=== PATIENT | female | born 1995 | race African-American/Black ===

== ENCOUNTER 2021-12-19 15:13 | Outpatient (CLI) | payer OTHER ==
[~2021-12-19] VITALS: Ht 162.6 cm; Wt 112.9 kg
--- NOTE | 2021-12-19 15:30 | NUR ---
1515 - PATIENT AMBULATORY TO LDR3 FOR NST. PATIENT SENT FROM CLINIC FOR EXTENDED MONITORING AFTER LOW BPP IN OFFICE. PATIENT DENIES LEAKING OF FLUID, CONTRACTIONS OR BLOODY SHOW. PATIENT REPORTS FAIR MOVEMENT. PATIENT ORIETNED TO ROOM AND PLAN OF CARE DISCUSSED. QUESTIONS ANSWERED. 1530 - PATIENT ON MONITOR. 1600 - MONITORING CONTINUES. 1624 - MD MARA UPDATED ON PATIENT VIA PHONE. ORDERS FOR DISCHARGE RECEIVED FROM MD MARA. PATIENT TO FOLLOW UP IN CLINIC ON SATURDAY FOR BPP. 1628 - MONITORING DISCONTINUED. 1630 - DISCHARGE INSTRUCTIONS REVIEWED. QUESTIONS ANSWERED. PATIENT AMBULATORY OFF UNIT.
== END 2021-12-19 16:30 | disposition home or self-care (01) ==
LOC: LDRO 15:13
DX: Z34.93 Encounter for supervision of normal pregnancy, unspecified, third trimester (principal); Z3A.36 36 weeks gestation of pregnancy

== ENCOUNTER 2022-01-04 06:24 | Inpatient (IN) | payer OTHER ==
[~2022-01-04] VITALS: Ht 162.6 cm; Wt 114.2 kg
[2022-01-04] VITALS (43 sets, daily range): BP systolic 97–131; BP diastolic 51–90; PULSE 60–96; TEMP 97.7–98.4
--- NOTE | 2022-01-04 06:30 | NUR ---
Presents to labor and delivery for induction of labor. Admission done, questions offered and answered. heart tones held on because baby isnt cooperating. heart tones 130s with accelerations noted. 0715 Pitocin started at 2 mat units iv as ordered and per policy. Pen g 5 million units iv started as ordered and per protocol for group b strep positive.
--- NOTE | 2022-01-04 06:45 | NUR ---
Rests in bed, alert. Having trouble keeping baby on monitor. This nurse holding ultra sound on.
[2022-01-04 07:49] LABS: BASO % 0.5 % (0.0-2.0); EOS % 0.7 % (0.0-4.0); GRAN # 2.9 K/mm3 (1.4-6.5); HEMATOCRIT 39.5 % (37.0-47.0); HEMOGLOBIN 12.8 g/dl (12.5-16.0); LYMPH % 22.9 % (20.0-51.0); MEAN CELL VOLUME 82 fl (80.0-100.0); MEAN CORPUSCULAR HEMOGLOBIN 26 pg (27-31); MEAN CORPUSCULAR HGB CONC 32 g/dl (33.0-37.0); MONO # 0.3 K/mm3 (0.1-0.6); MONO % 7.4 % (1.7-9.3); PLATELET COUNT 200 K/mm3 (130-400); RED BLOOD COUNT 4.84 M/mm3 (4.10-5.30)
[2022-01-04] MEDS ORDERED: NATURAL IRON65 MG (08:06)
[2022-01-04] MEDS ORDERED: PRENATAL TABLET PO (08:06)
--- NOTE | 2022-01-04 08:45 | NUR ---
Repositioned in bed, alert. Pad changed, clear fluid noted.
--- NOTE | 2022-01-04 09:00 | NUR ---
Rests in bed, alert. Breathing through contractions. Contractions palpate mild.
--- NOTE | 2022-01-04 09:15 | NUR ---
Ambulates to the bathroom. States needing to have a bowel movement. This nurse keeps checking on patient.
--- NOTE | 2022-01-04 09:30 | NUR ---
Uses birthing ball, states not liking it. Stands at bedside, alert, breathes through contractions.
--- NOTE | 2022-01-04 09:45 | NUR ---
Rests in bed, alert. States needing something for pain. 0955 Stadol 1 mg iv given as ordered.
--- NOTE | 2022-01-04 09:45 | NUR ---
Continues to rest with eyes closed. Resperations even and unlabored.
--- NOTE | 2022-01-04 10:00 | NUR ---
Rests in bed with eyes closed, resperations even and unlabored.
--- NOTE | 2022-01-04 11:00 | NUR ---
Repositioned patient to the right side. Visited with her about the epidural. Let her know that anesthesia will be in the o.r. at noon until about 1:45. States not wanting one right now. Patient drowsy with the stadol.
--- NOTE | 2022-01-04 11:15 | NUR ---
Request epidural. Anesthesia notified of request. Anesthesia here, visits with patient. Zakia here with another student. See anesthesia notes please. Patient tolerates well.
--- NOTE | 2022-01-04 12:30 | NUR ---
1239 Ephedrine 10 mg iv given for blood pressure of 97/54. Dr. Johansen here, Iupc placed per sterile technique.
--- NOTE | 2022-01-04 13:00 | NUR ---
Rests in bed, alert. Dr. Johansen here, vag exam done. Reports still dilated to five. Assist in putting left leg in stirrup.
--- NOTE | 2022-01-04 14:45 | NUR ---
Dr. Johansen called and let her know that patient having late decels, and heart tones down in the 90s-100s then back up to 120s. States turn pitocin off. 1450 Pitocin off as ordered.
--- NOTE | 2022-01-04 15:10 | NUR ---
Dr. Johansen called about heart tones down in the 80s-90s then back up to 120s. States to do knee chest position. Patient repositioned in knee chest.
--- NOTE | 2022-01-04 15:23 | NUR ---
Dr. Johansen called to inquire about patient. Let her know that heart tones are better in the 120s. Also let her know that she is still in knee chest position.
--- NOTE | 2022-01-04 15:30 | NUR ---
Continues to be knee chest positioned. Pen g 2.5 mat units iv given as ordred.
--- NOTE | 2022-01-04 16:19 | NUR ---
Dr. Johansen called and let known that patient complete. States not to push yet. Says Ill call you when I am ready.
--- NOTE | 2022-01-04 16:40 | NUR ---
scalp and iupc stopped working. Ultra sound toco on, heart rate 120s. Dr. Johansen called and start pushing. Pushes with contractions. Does well. 1654 Dr. Johansen here and pushes with patient. 170 Spontaneous delivery of baby boy boy by Dr. Johansen. 171 Spontaneous delivery of placenta by Dr. Johansen. Pitocin infusing at 333ccs an hour as ordered and per policy.
--- NOTE | 2022-01-04 17:15 | NUR ---
Rests in bed, alert. Dr. Johansen doing repair work.
--- NOTE | 2022-01-04 18:00 | NUR ---
Rests in bed, alert. Denies any pain at this time.
--- NOTE | 2022-01-04 18:40 | NUR ---
1839- REPORT RECEIVED, PT SLEEPING AT THIS TIME, CARE ASSUMED. 1914- PT HAVING SOME NAUSEA AND WOULD LIKE SOMETHING TO HELP WITH THAT. UNABLE TO LIFT LEGS FROM BED AT THIS TIME. 1999- PT LEGS STILL A LITTLE NUMB AND UNABLE TO DO STRAIGHT LEG LIFT. OFFERED TO GET PT UP WITH LIFT IF SHE WOULD LIKE. PT OPTS TO STAY IN LR4 BED UNTIL HER LEGS ARE LESS NUMB. 2099- EPIDURAL CATHETER REMOVED CHARTED. PT ASSISTED TO AMBULATE TO BATHROOM. ABLE TO VOID 400ML WITHOUT DIFFICULTY. PT INSTRUCTED ON AND PERFORMS PERICARE. CLEAN GOWN, PAD, AND PANTIES PROVIDED. NORMAL LOCHIA DISCUSSED. PT TOLERATES WELL. 2114- PT TRANSFERRED AMULATORY TO ROOM 207. BELONGINS WITH PT. PT WOULD LIKE TO START PAIN MEDICATION AT THIS TIME. PT ORIENTED TO ROOM AND CALL LIGHTS. PLAN OF CARE FOR THE NIGHT DISCUSSED AND QUESTIONS ANSWERED.
[2022-01-05 03:30] VITALS: BP 109/60; PULSE 66; TEMP 98.3
--- NOTE | 2022-01-05 04:00 | NUR ---
0400- PT HAS VOIDED THIRD VOID. SHE WOULD LIKE TO HAVE HER IV OUT AT THIS TIME EVEN THOUGH SHE DOES NEED RHOGAM. SHE WOULD RATHER HAVE RHOGAM GIVEN IM. IV SITE DC'D REQUESTED.
[2022-01-05 07:00] VITALS: BP 120/55; PULSE 68; TEMP 98.6
[2022-01-05] MEDS ORDERED: IBU800 M1 PO (08:12)
--- NOTE | 2022-01-05 09:20 | NUR ---
Initial visit; Patient thanked Mails Supervisor for coming in and offering congratulations and God's blessings for the of her son. Mails Supervisor thanked patient for choosing [facility].
[2022-01-05 15:46] VITALS: BP 129/63; PULSE 72; TEMP 98.3
[2022-01-05 19:24] VITALS: BP 119/51; PULSE 67; TEMP 98.6
[2022-01-06 08:59] VITALS: BP 128/75; PULSE 74; TEMP 98
--- NOTE | 2022-01-06 10:15 | NUR ---
1015 - DISCHARGE INSTRUCTIONS REVIEWED WITH PATIENT. QUESTIONS ANSWERED. PATIENT AMBULATORY OFF UNIT ACCOMPANIED BY SPOUSE.
== END 2022-01-06 10:15 | disposition home or self-care (01) | DRG 806 ==
LOC: OB 06:24 → LDR 06:24 → OB 09:27
PROVIDERS: ADMIT Student in an Organized Health Care Education/Training Program
PROC: 10E0XZZ Delivery of Products of Conception, External Approach (ICD-10-PCS; principal; 2022-01-04)
PROC: 3E033VJ Introduction of Other Hormone into Peripheral Vein, Percutaneous Approach (ICD-10-PCS; 2022-01-04)
PROC: 10907ZC Drainage of Amniotic Fluid, Therapeutic from Products of Conception, Via Natural or Artificial Opening (ICD-10-PCS; 2022-01-04)
PROC: 0UQMXZZ Repair Vulva, External Approach (ICD-10-PCS; 2022-01-04)
PROC: 10H07YZ Insertion of Other Device into Products of Conception, Via Natural or Artificial Opening (ICD-10-PCS; 2022-01-04)
PROC: 0UQG7ZZ Repair Vagina, Via Natural or Artificial Opening (ICD-10-PCS; 2022-01-04)
DX: O36.5930 Maternal care for other known or suspected poor fetal growth, third trimester, not applicable or unspecified (principal); O71.4 Obstetric high vaginal laceration alone; Z37.0 Single live birth; O24.420 Gestational diabetes mellitus in childbirth, diet controlled; O99.824 Streptococcus B carrier state complicating childbirth; O99.344 Other mental disorders complicating childbirth; F32.A Depression, unspecified; Z3A.39 39 weeks gestation of pregnancy; K21.9 Gastro-esophageal reflux disease without esophagitis; O99.62 Diseases of the digestive system complicating childbirth; O99.214 Obesity complicating childbirth; O99.02 Anemia complicating childbirth; D64.9 Anemia, unspecified; Z67.91 Unspecified blood type, Rh negative; O76 Abnormality in fetal heart rate and rhythm complicating labor and delivery; O69.81X0 Labor and delivery complicated by cord around neck, without compression, not applicable or unspecified
CPT/HCPCS: J0595; J2405; J2540; J2590; J2791; J7120